=== PATIENT | female | born 1990 | race Caucasian/White ===

== ENCOUNTER 2019-10-03 05:47 | Emergency (ER) | payer OTHER, SELFPAY ==
[2019-10-03 06:01] VITALS: BP 127/96; PULSE 117; RESP 15; TEMP 37.2; O2SAT 98; BMI 35.9
[2019-10-03] MEDS: PENICILLIN G BENZATHINE 1,200,000 UNIT/2 ML SYRINGE 1200000 UNIT IM (06:12)
--- NOTE | 2019-10-03 06:22 | ED_ITS ---
HPI - URI/Sore Throat General Chief Complaint: Upper Respiratory Symptoms Stated Complaint: Sore throat/Strep like symptoms Time Seen by Provider: 10/03/19 05:49 Source: patient Mode of arrival: Ambulatory Limitations: no limitations History of Present Illness HPI Narrative: 28-year-old female nonsmoker with extensive history of strep throat presents by herself in the chief complaint of sore throat, difficulty swa llowing and fever as high as 102 since yesterday. She denies any runny nose or cough. She denies any nausea, vomiting or diarrhea. She does have some left ear pain, particularly with swallowing. 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 Complaint: fever and sore throat Onset (ago): hour(s) Duration: constant Severity: moderate Relieving factors: nothing Exacerbating factors: swallowing Associated symptoms: fever, chills and myalgias Treatments prior to arrival: acetaminophen and ibuprofen Related Data Allergies Allergy/AdvReac Type Severity Reaction Status Date / Time azithromycin Allergy Verified 10/03/19 06:01 Review of Systems Constitutional Constitutional: Denies chills, Denies fatigue, Denies fever(s), Denies frequent falls, Denies lethargy and Denies weakness Eyes Eyes: Denies change in vision, Denies eye discharge, Denies irritation and Denies loss of vision ENT Ears, Nose, Mouth, and Throat: Denies change in voice, Denies dizziness, Denies neck pain, Reports sore throat and Denies throat swelling Cardiovascular Cardiovascular: Denies chest pain, Denies irregular heart rhythm, Denies lightheadedness, Denies palpitations, Denies dyspnea, Denies dyspnea on exertion and Denies orthopnea Respiratory Respiratory: Denies cough, Denies dyspnea, Denies dyspnea on exertion and Denies wheezing Gastrointestinal Gastrointestinal: Denies abdominal pain, Denies change in bowel habits, Denies diarrhea, Denies nausea and Denies vomiting Genitourinary Genitourinary: Denies hematuria, Denies flank pain, Denies urinary incontinence and Denies urinary urgency Musculoskeletal Musculoskeletal: Denies back pain, Denies muscle weakness, Denies neck pain, Denies numbness and Denies tingling Integumentary/Breasts Skin/Breast: Denies pruritus, Denies erythema, Denies rash and Denies wounds Neurologic Neurologic: Denies behavioral changes, Denies confusion, Denies dizziness, Denies frequent falls, Denies loss of vision, Denies numbness, Denies tingling and Denies weakness Psychiatric Psychiatric: Denies anxiety, Denies behavioral changes, Denies confusion, Denies depression, Denies homicidal ideation and Denies suicidal ideation Endocrine Endocrine: Denies fatigue, Denies flushing and Denies palpitations Hematologic/Lymphatic Hematologic/Lymphatic: Denies easy bruising Allergic/Immunologic Allergic/Immunologic: Denies urticaria, Denies throat swelling and Denies wheezing Exam Narrative Exam Narrative: GEN: AOx3 and in mild distress EYES: Pupils are equal, round, and reactive to light and accommodation. Extraoccular muscles are intact bilaterally. There is no subconjunctival hemorrhage or exudate. EARS: B/L TMs sneed, with normal cones of light and normal landmarks THROAT: pharyngeal erythema, no exudate or swelling. Smells streppy CHEST: Lungs are clear to auscultation bilaterally and free of wheezes, rales, or rhonchi. Heart rate is regular rhythm, there are no murmurs, clicks, rubs, or gallops. There is no chest wall tenderness. ABD: Abdomen is soft and nontender. There is no guarding or rebound. Bowel sounds are normal in all 4 quadrants. There is no mass or organomegaly. EXT: Full painless ROM of all extremities with no loss of sensation or strength. SKIN: Warm, pink, and dry. No erythema or rash Initial Vital Signs Initial Vital Signs: Vital Signs Temperature 98.9 F 10/03/19 06:01 Pulse Rate 117 H 10/03/19 06:01 Respiratory Rate 15 10/03/19 06:01 Blood Pressure 127/96 H 10/03/19 06:01 Pulse Oximetry 98 10/03/19 06:01 Course Orders Ordered: Discontinued Medications Penicillin G Benzathine (Bicillin L-A) 1,200,000 unit IM NOW ONE Stop: 10/03/19 06:03 Last Admin: 10/03/19 06:12 Dose: 1,200,000 unit Documented by: [facility] Vital Signs Vital signs: Vital Signs - 8 hr 10/03/19 06:01 Temperature 98.9 F Pulse Rate 117 H Respiratory Rate 15 Blood Pressure 127/96 H Pulse Oximetry 98 MDM - URI/Sore Throat Lab Data Labs: Point of Care Testing Rapid Strep A Positive Discharge Plan Departure Patient Disposition: Home Clinical Impression: Strep pharyngitis Instructions: DI for Strep Throat Activity Restrictions/Additional Instructions: *You have been diagnosed with [ strep throat ] *What to do: *Take medications as directed *Follow up with your primary care provider in 2-3 days, call for an appointment. Let them know you were seen in the Emergency Department and that we ask that you be seen in follow up *Return to ER if you should have any new, worsening or concerning symptoms
[2019-10-03 06:30] VITALS: BP 127/96; PULSE 104; RESP 16; O2SAT 98
== END 2019-10-03 06:30 | disposition home or self-care (01) ==
PROVIDERS: Emergency Provider Emergency Medicine
DX: J02.0 Streptococcal pharyngitis (principal)
CPT/HCPCS: 87880; 96372; 99282; 99283; J0561

== ENCOUNTER 2020-08-03 12:40 | Emergency (ER) | payer OTHER, SELFPAY ==
[2020-08-03] VITALS (12 sets, daily range): BP systolic 113–138; BP diastolic 72–83; PULSE 81–101; RESP 12–24; TEMP 37.1; O2SAT 99–100; BMI 30.6
--- NOTE | 2020-08-03 13:09 | PC.NURSE ---
Patient under significant amount of stress. 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 Had to put their family dog down yesterday. Patient under sifnifcant stress at work. Very tearful, I feel horrible and stupid being here Patient has a PCP and recently increased antidepressant. Patient states she has had decrease appetite, nausea with any PO intake. Patient reports sharp pain today with deep breath.
--- NOTE | 2020-08-03 13:11 | DI.RAD.S_ITS ---
PROCEDURE: XR CHEST 1V INDICATIONS: chest pain TECHNIQUE: One view of the chest was acquired. COMPARISON: None. FINDINGS: Surgical changes and devices: None. Lungs and pleura: Lungs are clear. No pleural effusions or pneumothorax. Mediastinum: Mediastinal contours appear normal. Heart size is normal. Bones and chest wall: No suspicious bony lesions. Overlying soft tissues appear unremarkable. IMPRESSION: No acute cardiopulmonary disease. Dictated by: Radha Burgos M.D. on 08/03/2020 at 14:25 Approved by: Radha Burgos M.D. on 08/03/2020 at 14:25
[2020-08-03 13:21] LABS: Add Manual Diff / Slide Review NO; Basophils Absolute Auto 0 /uL (0-100); Basophils Percent Auto 0.6 % (0-2); Eosinophils Absolute Auto 0 /uL (0-450); Eosinophils Percent Auto 0.3 % (2-4); Hematocrit 39.6 % (36-46); Hemoglobin 14.1 g/dL (12.0-16.0); Lymphocytes Absolute Auto 2500 /uL (1100-4500); Lymphocytes Percent Auto 32.1 % (25-40); Mean Corpuscular HGB Conc 35.6 % (30-36); Mean Corpuscular Hemoglobin 31.5 PG (26-34); Mean Corpuscular Volume 88.5 fL (80-100); Monocytes Absolute Auto 400 /uL (0-900); Monocytes Percent Auto 5.2 % (3-14); Neutrophils Absolute Auto 4800 /uL (1500-7000); Neutrophils Percent Auto 61.8 % (50-75); Platelet Count 288 X10^3/uL (150-400); Red Blood Cell Count 4.48 X10^6/uL (4.0-5.2); Red Cell Distribution Width 12.4 % (11.6-14.8); White Blood Cell Count 7.8 X10^3/uL (4.5-11.0)
[2020-08-03] MEDS: SODIUM CHLORIDE 0.9% 1,000 ML 999 ML IV (13:21)
[2020-08-03] MEDS: LORazepam 2 MG/ML INJ 0.5 MG IV (13:23)
[2020-08-03] MEDS: ONDANSETRON 4 MG/2 ML INJ IV ×2 (13:23→15:37)
[2020-08-03 13:26] LABS: Alanine Aminotransferase 21 IU/L (<35); Albumin 4.5 g/dL (3.5-5.0); Albumin Globulin Ratio 1.4 (1.0-2.8); Alkaline Phosphatase 58 U/L (38-126); Aspartate Aminotransferase 23 IU/L (14-36); BUN Creatinine Ratio 15.8 (6-22); Bilirubin Total 0.4 mg/dL (0.2-1.3); Blood Urea Nitrogen 12 mg/dL (7-17); Calcium 9.5 mg/dL (8.4-10.2); Carbon Dioxide 23 mmol/L (22-32); Chloride 103 mmol/L (98-107); Creatine Kinase 75 U/L (30-135); Estimated Glomerular Filt Rate > 60.0 mL/min (>60); Globulin 3.3 g/dL (1.7-4.1); Glucose 107 mg/dL (70-100); HEMOLYSIS < 15 (0-50); Lipase 45 U/L (23-300); Potassium 3.8 mmol/L (3.4-5.1); Sodium 135 mmol/L (137-145); Total Protein 7.8 g/dL (6.3-8.2)
[2020-08-03 13:27] LABS: D Dimer < 200 ng/mL (<230)
[2020-08-03 13:29] LABS: INR 1.1 (0.9-1.3)
[2020-08-03 13:32] LABS: PTT Partial Thromboplastin Tim 31 SECONDS (26.4-36.2)
[2020-08-03 13:38] LABS: Troponin I < 0.012 ng/mL (0.01-0.034)
[2020-08-03] MEDS: KETOROLAC 60 MG/2 ML VIAL 15 MG IV (14:17)
--- NOTE | 2020-08-03 15:05 | ED_ITS ---
HPI - Chest Pain <WAN Barrett - Last Filed: 08/03/20 22:10> General Chief Complaint: Shortness of Breath/Dyspnea Stated Complaint: SOB/ POSSIBLY ANXIETY Time Seen by Provider: 08/03/20 12:57 Source: patient Mode of arrival: Ambulatory Limitations: no limitations History of Present Illness HPI narrative: This is a 32-year-old female, nonsmoker, who has history of ADHD, hypothyroidism, depression, panic attacks and PTSD presents to ED with upper chest tightness, lightheadedness, breathing difficulty, and nausea. Patient reports she has a lot of stress going on at this time. 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 Patient also had to put her dog down yesterday and patient's 's grandmother just but unable to communicate this with her . 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 Patient reports pain increases with deep breathing and radiates down to or chest. Patient denies abdominal pain or vomiting. Due to nausea, patient has not been hydrating or eating well and feels dehydrated. Patient used to see a therapist but since , the therapist moved away and has not been seen anyone else. Patient reports she usually is able to manage her anxiety without much difficulty. Patient states she is unsure of history of blood clots shortly after her 1st charge delivery since she had atraumatic delivery and has PTSD from this. LMP 4 months ago and she takes control pill continuously to avoid menstruation. Related Data Previous Rx's Medication Instructions Recorded lorazepam [Ativan] 0.5 - 1 mg PO BID PRN #7 tab 08/03/20 Allergies Allergy/AdvReac Type Severity Reaction Status Date / Time azithromycin Allergy Verified 08/03/20 13:02 Review of Systems <WAN Barrett - Last Filed: 08/03/20 22:10> Review of Systems Narrative: General: Denies fever, chills, fatigue, malaise, sweats. HEENT: Denies sinus pain, ear pain, sore throat, difficulty swallowing, dizziness. Respiratory: HPI Cardiovascular: HPI Gastrointestinal: Denies (+) nausea, vomiting, abdominal pain, diarrhea, constipation, melena. : Denies dysuria, frequency, incontinence, hematuria, urinary retention. Musculoskeletal: Denies weakness, joint pain or bony pain. Skin: Denies rash, skin lesions, or other. Neurologic: Denies weakness, headache, numbness, change in speech, confusion, seizures, incoordination. Psychiatric: See HPI 12-point review of systems is negative except for those stated above. Patient History <WAN Barrett - Last Filed: 08/03/20 22:10> Medical History (Updated 08/03/20 @ 21:57 by WAN Barrett) Melissa's disease (Acute) Panic attacks (Acute) PTSD (post-traumatic stress disorder) (Acute) Surgical History (Updated 08/03/20 @ 21:57 by WAN Barrett) Hx of cholecystectomy (Acute) S/P tonsillectomy and adenoidectomy (Acute) Social History (Updated 08/03/20 @ 21:57 by WAN Barrett) Smoking Status: Never smoker alcohol intake: current substance use type: does not use alcohol intake frequency: holidays/special occasions only Exam <WAN Barrett - Last Filed: 08/03/20 22:10> Narrative Exam Narrative: GEN: Alert, oriented x 3, crying and appears to be anxious. Head: Normal cephalic, atraumatic. No scalp or temporal tenderness, palpable mass or rash. EYES: Pupils are equal, round, and reactive to light and accommodation. Extraocular muscles are intact bilaterally. There is no subconjunctival hemorrhage, exudate and sclera non-icteric. ENT: Hearing grossly intact. Nose without bleeding, purulent discharge or deviation. Mucous membrane dry, no mucosal lesion. Throat without erythema, tonsillar hypertrophy or exudate. Uvula in midline, airway patent. Neck: Trachea in midline. No JVD, non-tender without lymphadenopathy. No masses or thyroid megaly. Supple, non-tender and no meningeal signs. CARDIAC: Normal regular rate and rhythm without murmurs, gallops, or rubs. No chest wall tenderness. No peripheral edema, cyanosis or pallor. Capillary refill is less than 2 seconds. RESPIRATORY: Lungs are clear to auscultate bilaterally. No cough, wheezes, rales, or rhonchi. No stridor, respiratory distress, increase work of breathing, or accessary muscle used. ABD: Abdomen soft, nontender and non-distended. No guarding or rebound tenderness to palpate. Bowel sounds are normal in all 4 quadrants. There is no palpable masses or organomegaly. EXT: Full painless ROM of all extremities with no loss of sensation, strength, effusion or edema. SKIN: Warm, dry, normal color for patient. No erythema, lesions or rash over visible areas. BACK: Nontender without deformity or crepitance. No flank tenderness. NEUROLOGICAL: Alert and oriented to place, time and person. Sensation and motor function intact bilaterally. No facial droops, dysphasia. PSYCHIATRIC: Good judgement and reason, without hallucinations. In tears conversing and anxious. Patient is not suicidal. No unusual behaviors and coop erative. Initial Vital Signs Initial Vital Signs: Vital Signs Temperature 98.8 F 08/03/20 13:02 Pulse Rate 96 H 08/03/20 13:02 Respiratory Rate 08/03/20 13:02 Blood Pressure 138/83 08/03/20 13:02 Pulse Oximetry 100 08/03/20 13:02 <Tea Veronica MD - Last Filed: 08/04/20 20:18> Initial Vital Signs Initial Vital Signs: Vital Signs Temperature 98.8 F 08/03/20 13:02 Pulse Rate 96 H 08/03/20 13:02 Respiratory Rate 08/03/20 13:02 Blood Pressure 138/83 08/03/20 13:02 Pulse Oximetry 100 08/03/20 13:02 Scores <WAN Barrett - Last Filed: 08/03/20 22:10> ABCD2 Citation: Lancet. 2006Dec 22;369(4608):283-92. Validation and refinement of scores to predict very early stroke risk after transient ischaemic attack. Kenia SC1, Poli PM, Christiano MN, Rick MF, Lionel JS, Maira AL, Sunny S. GCS Watrous coma scale eye opening: Spontaneous [place] coma scale verbal response: Orientated [place] coma scale motor response: Obey commands Hector coma scale total score: 15 HEART Score Heart Score history: Slightly Suspicious Heart Score EKG: Normal Heart Score Age: < 45 years old Heart Score risk factors: No known risk factors Heart Score troponin: < or = to normal limit Heart Score Total: 0 Wells' Criteria for PE Clinical signs and symptoms of DVT: No PE is #1 Dx or equally likely: No Heart rate > 100: No Immobilization at least 3 days or surg in previous 4 weeks: No History of PE or DVT: No Hemoptysis: No Malignancy w/Treatment within 6 months or palliative: No Wells' PE Score total: 0 Course <Waldo EstesWAN Tineo - Last Filed: 08/03/20 22:10> Orders Ordered: Discontinued Medications Albuterol (Ventolin Hfa Prepack) 1 box MISC SEEINSTR ONE Stop: 08/03/20 15:23 Last Admin: 08/03/20 15:25 Dose: 1 box Documented by: THANG Albuterol/Ipratropium (Duoneb) 3 ml INH NOW ONE Stop: 08/03/20 15:10 Last Admin: 08/03/20 15:25 Dose: Not Given Documented by: THANG Sodium Chloride (Normal Saline 0.9%) 1,000 mls @ 999 mls/hr IV CONT ANDRES Last Infusion: 08/03/20 14:48 Dose: 0 mls/hr Documented by: Admin: 08/03/20 13:21 Dose: 999 mls/hr Documented by: AMITA Ketorolac Tromethamine (Toradol) 15 mg IV NOW ONE Stop: 08/03/20 14:05 Last Admin: 08/03/20 14:17 Dose: 15 mg Documented by: ANDREW Lorazepam (Ativan) 0.5 mg IV NOW ONE Stop: 08/03/20 13:12 Last Admin: 08/03/20 13:23 Dose: 0.5 mg Documented by: AMITA Ondansetron HCl (Zofran) 4 mg IV NOW ONE Stop: 08/03/20 13:12 Last Admin: 08/03/20 13:23 Dose: 4 mg Documented by: AMITA Ondansetron HCl (Zofran) 4 mg IV NOW ONE Stop: 08/03/20 15:34 Last Admin: 08/03/20 15:37 Dose: 4 mg Documented by: ANDREW Reevaluation(s) Reevaluation #1: Patient reports short of breath improved after the Ativan and resting. However, still unable to take deep breaths at this time. Will consider medicating patient with toward our and possibly neb treatment. Time: 14:00 Vital Signs Vital signs: Vital Signs - 8 hr 08/03/20 14:00 08/03/20 14:15 08/03/20 14:30 Pulse Rate 81 87 84 Respiratory Rate 14 16 Blood Pressure 114/76 117/77 Pulse Oximetry 100 100 100 08/03/20 14:54 08/03/20 15:00 08/03/20 15:30 Pulse Rate 95 H 98 H 101 H Respiratory Rate 16 22 19 Blood Pressure 117/73 118/73 113/72 Pulse Oximetry 100 100 100 08/03/20 15:31 08/03/20 16:00 08/03/20 16:30 Pulse Rate 98 H 90 89 Respiratory Rate 16 15 16 Blood Pressure 116/75 119/74 Pulse Oximetry 99 99 100 <Tea Veronica MD - Last Filed: 08/04/20 20:18> Orders Ordered: Discontinued Medications Albuterol (Ventolin Hfa Prepack) 1 box MISC SEEINSTR ONE Stop: 08/03/20 15:23 Last Admin: 08/03/20 15:25 Dose: 1 box Documented by: THANG Albuterol/Ipratropium (Duoneb) 3 ml INH NOW ONE Stop: 08/03/20 15:10 Last Admin: 08/03/20 15:25 Dose: Not Given Documented by: THANG Sodium Chloride (Normal Saline 0.9%) 1,000 mls @ 999 mls/hr IV CONT ANDRES Last Infusion: 08/03/20 14:48 Dose: 0 mls/hr Documented by: Admin: 08/03/20 13:21 Dose: 999 mls/hr Documented by: AMITA Ketorolac Tromethamine (Toradol) 15 mg IV NOW ONE Stop: 08/03/20 14:05 Last Admin: 08/03/20 14:17 Dose: 15 mg Documented by: ANDREW Lorazepam (Ativan) 0.5 mg IV NOW ONE Stop: 08/03/20 13:12 Last Admin: 08/03/20 13:23 Dose: 0.5 mg Documented by: AMITA Ondansetron HCl (Zofran) 4 mg IV NOW ONE Stop: 08/03/20 13:12 Last Admin: 08/03/20 13:23 Dose: 4 mg Documented by: AMITA Ondansetron HCl (Zofran) 4 mg IV NOW ONE Stop: 08/03/20 15:34 Last Admin: 08/03/20 15:37 Dose: 4 mg Documented by: ANDREW Vital Signs Vital signs: Vital Signs - 8 hr 08/03/20 14:00 08/03/20 14:15 08/03/20 14:30 Pulse Rate 81 87 84 Respiratory Rate 14 16 Blood Pressure 114/76 117/77 Pulse Oximetry 100 100 100 08/03/20 14:54 08/03/20 15:00 08/03/20 15:30 Pulse Rate 95 H 98 H 101 H Respiratory Rate 16 22 19 Blood Pressure 117/73 118/73 113/72 Pulse Oximetry 100 100 100 08/03/20 15:31 08/03/20 16:00 08/03/20 16:30 Pulse Rate 98 H 90 89 Respiratory Rate 16 15 16 Blood Pressure 116/75 119/74 Pulse Oximetry 99 99 100 MDM - Chest Pain <WAN Barrett - Last Filed: 08/03/20 22:10> Differential Diagnosis Differential diagnosis: Likely atypical chest pain and other (Pulmonary embolism, panic attack, [place]) Medical Records Data Attestation: I reviewed the patient's medical records. Lab Data Attestation: I reviewed the patient's lab results. Result diagrams: 08/03/20 13:00 08/03/20 13:00 Labs: Lab Results 08/03/20 08/03/20 08/03/20 Range/Units 13:00 13:00 13:00 WBC 7.8 (4.5-11.0) X10^3/uL RBC 4.48 (4.0-5.2) X10^6/uL Hgb 14.1 (12.0-16.0) g/dL Hct 39.6 (36-46) % MCV 88.5 (80-100) fL MCH 31.5 (26-34) PG MCHC 35.6 (30-36) % RDW 12.4 (11.6-14.8) % Plt Count 288 (150-400) X10^3/uL Neut % (Auto) 61.8 (50-75) % Lymph % (Auto) 32.1 (25-40) % [place] % (Auto) 5.2 (3-14) % Eos % (Auto) 0.3 L (2-4) % Baso % (Auto) 0.6 (0-2) % Neut # (Auto) 4800 (7681-4566) /uL Lymph # (Auto) 2500 (7463-4448) /uL [place] # (Auto) 400 (0-900) /uL Eos # (Auto) 0 (0-450) /uL Baso # (Auto) 0 (0-100) /uL PT 13.0 H (10.1-12.7) SECONDS INR 1.1 (0.9-1.3) APTT 31 (26.4-36.2) SECONDS D-Dimer < 200 (<230) ng/mL Sodium 135 L (137-145) mmol/L Potassium 3.8 (3.4-5.1) mmol/L Chloride 103 (98-107) mmol/L Carbon Dioxide 23 (22-32) mmol/L BUN 12 (7-17) mg/dL Creatinine 0.76 (0.52-1.04) mg/dL Estimated GFR > 60.0 (>60) mL/min BUN/Creatinine Ratio 15.8 (6-22) Glucose 107 H (70-100) mg/dL Calcium 9.5 (8.4-10.2) mg/dL Total Bilirubin 0.4 (0.2-1.3) mg/dL AST 23 (14-36) IU/L ALT 21 (<35) IU/L Alkaline Phosphatase 58 (38-126) U/L Total Creatine Kinase 75 (30-135) U/L CK-MB (CK-2) TNP CK-MB (CK-2) Rel Index TNP Troponin I < 0.012 (0.01-0.034) ng/mL Total Protein 7.8 (6.3-8.2) g/dL Albumin 4.5 (3.5-5.0) g/dL Globulin 3.3 (1.7-4.1) g/dL Albumin/Globulin Ratio 1.4 (1.0-2.8) Lipase 45 (23-300) U/L 08/03/20 Range/Units 16:04 WBC (4.5-11.0) X10^3/uL RBC (4.0-5.2) X10^6/uL Hgb (12.0-16.0) g/dL Hct (36-46) % MCV (80-100) fL MCH (26-34) PG MCHC (30-36) % RDW (11.6-14.8) % Plt Count (150-400) X10^3/uL Neut % (Auto) (50-75) % Lymph % (Auto) (25-40) % [place] % (Auto) (3-14) % Eos % (Auto) (2-4) % Baso % (Auto) (0-2) % Neut # (Auto) (8146-0897) /uL Lymph # (Auto) (7858-2675) /uL [place] # (Auto) (0-900) /uL Eos # (Auto) (0-450) /uL Baso # (Auto) (0-100) /uL PT (10.1-12.7) SECONDS INR (0.9-1.3) APTT (26.4-36.2) SECONDS D-Dimer (<230) ng/mL Sodium (137-145) mmol/L Potassium (3.4-5.1) mmol/L Chloride (98-107) mmol/L Carbon Dioxide (22-32) mmol/L BUN (7-17) mg/dL Creatinine (0.52-1.04) mg/dL Estimated GFR (>60) mL/min BUN/Creatinine Ratio (6-22) Glucose (70-100) mg/dL Calcium (8.4-10.2) mg/dL Total Bilirubin (0.2-1.3) mg/dL AST (14-36) IU/L ALT (<35) IU/L Alkaline Phosphatase (38-126) U/L Total Creatine Kinase (30-135) U/L CK-MB (CK-2) CK-MB (CK-2) Rel Index Troponin I < 0.012 (0.01-0.034) ng/mL Total Protein (6.3-8.2) g/dL Albumin (3.5-5.0) g/dL Globulin (1.7-4.1) g/dL Albumin/Globulin Ratio (1.0-2.8) Lipase (23-300) U/L Point of Care Testing Test Results Negative Urine Dip Bedside Urine Glucose Negative Bedside Urine Bilirubin + 1 Bedside Urine Ketone +/- 5 Urine Specific [place] 1.030 Bedside Urine Occult Blood - Negative Bedside Urine pH 5.5 Bedside Urine Protein +/- 15 Bedside Urine Urobilinogen - Negative Bedside Urine Nitrite - Negative Bedside Urine Leukocytes - Negative Esterase Imaging Data Chest x-ray: Radiologist's Impression: [address] [address] XRay Report Signed Patient: Danielle RaygozaMR#: [id number] : 1990Acct:[id number] Age/Sex: 29 / FDate of Service: 08/03/20 Loc: ED Accession Number: [id number] Procedure: XR chest 1V Ordering Provider: Waldo Ulloa PROCEDURE: XR CHEST 1V INDICATIONS: chest pain TECHNIQUE: One view of the chest was acquired. COMPARISON: None. FINDINGS: Surgical changes and devices: None. Lungs and pleura: Lungs are clear. No pleural effusions or pneumothorax. Mediastinum: Mediastinal contours appear normal. Heart size is normal. Bones and chest wall: No suspicious bony lesions. Overlying soft tissues appear unremarkable. IMPRESSION: No acute cardiopulmonary disease. Dictated by: Radha Burgos M.D. on 08/03/2020 at 14:25 Approved by: Radha Burgos M.D. on 08/03/2020 at 14:25 ECG Data Attestation: I personally reviewed and interpreted this ECG as follows: Prior ECG tracings: not available for review Interpretation: Sinus rhythm rate at 94. Normal [place]. ST interval 147, QRS duration 92, QT/QTC 357/409. NO acute ST changes MDM Narrative Medical decision making narrative: This is a 29-year-old female who presents to ED with chest pain, nausea, dyspnea is under extensive situational stress currently presents to ED crying. EKG is normal sinus rhythm without acute ST changes. Unremarkable CBC and chemistry test. Unremarkable coag test. D-dimer test was done given patient has pleuritic chest discomfort and which was negative. Deferred CT chest for PE test. Chest x-ray was negative for acute findings. Two sets cardiac enzymes were negative. Heart score was 0. Wells score for PE was 0. It is likely the patient's chest pain is related to panic attacks from increased situational stress. Patient was medicated with 1 L of IV fluid, Zofran, Ativan 0.5 mg IV. Patient reports improved chest pain and improved but not completely resolved difficulty taking deep breaths. Patient given albuterol inhaler for her symptoms which helped mildy. Second dose of Zofran was provided and she was able to tolerate fluids. Patient reports over the improved symptoms and discharged to home with small amount of Ativan as needed use. Advised to find another therapist/counselor and advised to follow with her primary care physician. Return precautions were discussed with the patient and patient verbalized understanding and agreement with the treatment plan. <Tea Veronica MD - Last Filed: 08/04/20 20:18> Lab Data Labs: Lab Results 08/03/20 08/03/20 08/03/20 Range/Units 13:00 13:00 13:00 WBC 7.8 (4.5-11.0) X10^3/uL RBC 4.48 (4.0-5.2) X10^6/uL Hgb 14.1 (12.0-16.0) g/dL Hct 39.6 (36-46) % MCV 88.5 (80-100) fL MCH 31.5 (26-34) PG MCHC 35.6 (30-36) % RDW 12.4 (11.6-14.8) % Plt Count 288 (150-400) X10^3/uL Neut % (Auto) 61.8 (50-75) % Lymph % (Auto) 32.1 (25-40) % [place] % (Auto) 5.2 (3-14) % Eos % (Auto) 0.3 L (2-4) % Baso % (Auto) 0.6 (0-2) % Neut # (Auto) 4800 (5833-8523) /uL Lymph # (Auto) 2500 (9143-4779) /uL [place] # (Auto) 400 (0-900) /uL Eos # (Auto) 0 (0-450) /uL Baso # (Auto) 0 (0-100) /uL PT 13.0 H (10.1-12.7) SECONDS INR 1.1 (0.9-1.3) APTT 31 (26.4-36.2) SECONDS D-Dimer < 200 (<230) ng/mL Sodium 135 L (137-145) mmol/L Potassium 3.8 (3.4-5.1) mmol/L Chloride 103 (98-107) mmol/L Carbon Dioxide 23 (22-32) mmol/L BUN 12 (7-17) mg/dL Creatinine 0.76 (0.52-1.04) mg/dL Estimated GFR > 60.0 (>60) mL/min BUN/Creatinine Ratio 15.8 (6-22) Glucose 107 H (70-100) mg/dL Calcium 9.5 (8.4-10.2) mg/dL Total Bilirubin 0.4 (0.2-1.3) mg/dL AST 23 (14-36) IU/L ALT 21 (<35) IU/L Alkaline Phosphatase 58 (38-126) U/L Total Creatine Kinase 75 (30-135) U/L CK-MB (CK-2) TNP CK-MB (CK-2) Rel Index TNP Troponin I < 0.012 (0.01-0.034) ng/mL Total Protein 7.8 (6.3-8.2) g/dL Albumin 4.5 (3.5-5.0) g/dL Globulin 3.3 (1.7-4.1) g/dL Albumin/Globulin Ratio 1.4 (1.0-2.8) Lipase 45 (23-300) U/L 08/03/20 Range/Units 16:04 WBC (4.5-11.0) X10^3/uL RBC (4.0-5.2) X10^6/uL Hgb (12.0-16.0) g/dL Hct (36-46) % MCV (80-100) fL MCH (26-34) PG MCHC (30-36) % RDW (11.6-14.8) % Plt Count (150-400) X10^3/uL Neut % (Auto) (50-75) % Lymph % (Auto) (25-40) % [place] % (Auto) (3-14) % Eos % (Auto) (2-4) % Baso % (Auto) (0-2) % Neut # (Auto) (8580-0313) /uL Lymph # (Auto) (4903-6496) /uL [place] # (Auto) (0-900) /uL Eos # (Auto) (0-450) /uL Baso # (Auto) (0-100) /uL PT (10.1-12.7) SECONDS INR (0.9-1.3) APTT (26.4-36.2) SECONDS D-Dimer (<230) ng/mL Sodium (137-145) mmol/L Potassium (3.4-5.1) mmol/L Chloride (98-107) mmol/L Carbon Dioxide (22-32) mmol/L BUN (7-17) mg/dL Creatinine (0.52-1.04) mg/dL Estimated GFR (>60) mL/min BUN/Creatinine Ratio (6-22) Glucose (70-100) mg/dL Calcium (8.4-10.2) mg/dL Total Bilirubin (0.2-1.3) mg/dL AST (14-36) IU/L ALT (<35) IU/L Alkaline Phosphatase (38-126) U/L Total Creatine Kinase (30-135) U/L CK-MB (CK-2) CK-MB (CK-2) Rel Index Troponin I < 0.012 (0.01-0.034) ng/mL Total Protein (6.3-8.2) g/dL Albumin (3.5-5.0) g/dL Globulin (1.7-4.1) g/dL Albumin/Globulin Ratio (1.0-2.8) Lipase (23-300) U/L Point of Care Testing Test Results Negative Urine Dip Bedside Urine Glucose Negative Bedside Urine Bilirubin + 1 Bedside Urine Ketone +/- 5 Urine Specific [place] 1.030 Bedside Urine Occult Blood - Negative Bedside Urine pH 5.5 Bedside Urine Protein +/- 15 Bedside Urine Urobilinogen - Negative Bedside Urine Nitrite - Negative Bedside Urine Leukocytes - Negative Esterase Discharge Plan Departure Patient Disposition: Home Clinical Impression: Atypical chest pain, Acute reaction to situational stress Discharge Date/Time: 08/03/20 17:09 Instructions: DI for Atypical Chest Pain, DI for Anxiety -- Adult Activity Restrictions/Additional Instructions: You have been diagnosed with [atypical chest pain and acute reaction to situ ational stress. Cardiac enzymes (2 sets), other lab tests, chest x-ray, EKG are assuring.]. What to do: *Take your medications as directed. Please take Ativan as needed for recurring symptoms. This can cause drowsiness so please take precautions such as not driving, drinking alcohol, or operating heavy equipments. *Follow up with your primary care provider in 2-3 days, call for an appointment. Let them know you were seen in the ED and that we asked you to be seen in follow up. Please see if you can find other counselor/therapist. *Return to ED if you have any new, worsening, or concerning symptoms, such as [worsening or different chest pain, breathing difficulty, unable to tolerate fl uids, fever, or any acute concerns]. Prescriptions: New lorazepam [Ativan] 1 mg tablet 0.5 - 1 mg PO BID PRN (Reason: anxiety) Qty: 7 RF: 0 Referrals: Raghav García ARNP [Primary Care Provider] - Stand Alone Forms: Work Release Note <Tea Veronica MD - Last Filed: 08/04/20 20:18> Cosign ED Attending Adrianaature Attestation: I was immediately available in the department for consultation throughout this patient's visit. I agree with documentation as above. Tea Veronica MD
[2020-08-03] MEDS: ALBUTEROL HFA PREPACK 1 BOX MISC (15:25)
[2020-08-03 16:32] LABS: Troponin I < 0.012 ng/mL (0.01-0.034)
== END 2020-08-03 17:09 | disposition home or self-care (01) ==
PROVIDERS: Emergency Provider Nurse Practitioner Family; PCP Registered Nurse
DX: R07.89 Other chest pain (principal); F43.0 Acute stress reaction; R06.00 Dyspnea, unspecified; R11.0 Nausea; F90.9 Attention-deficit hyperactivity disorder, unspecified type; F43.10 Post-traumatic stress disorder, unspecified
CPT/HCPCS: 36415; 71045; 80053; 81003; 81025; 82550; 83690; 84484; 85025; 85379; 85610; 85730; 93005; 94640; 96361; 96374; 96375; 96376; 99284; J1885; J2060; J2405